=== PATIENT | male | born 1935 | race American Indian/Alaskan Native ===

== ENCOUNTER 2019-06-22 06:50 | Day surgery (SDC) | payer MEDICARE ==
[~2019-06-22 06:50] MED LIST: BACTERIOSTATIC SODIUM CHLORIDE 0.9% 30 ML VIAL INFILTRATI ONE; LACTATED RINGERS 1,000 ML IV SCH; WATER FOR IRRIG STERILE 2000 ML IR ONE; ceFAZolin/STERILE WATER 2 GM/20 ML SYRINGE IV NR
[2019-06-22 07:10] LABS: Basophils % (Auto) 0.7 % (0.0-1.8); Eosinophils # (Auto) 0.2 K/mm3 (0.0-0.4); Eosinophils % (Auto) 3.3 % (0.0-4.3); Hematocrit 37.7 % (35.5-45.6); Hemoglobin 12.6 gm/dl (11.8-15.2); Lymphocytes # (Auto) 1.7 K/mm3 (1.2-5.4); Lymphocytes % (Auto) 32.4 % (13.4-35.0); Mean Corpuscular HGB Conc 33 % (32-34); Mean Corpuscular Volume 88 fl (84-94); Monocytes # (Auto) 0.3 K/mm3 (0.0-0.8); Monocytes % (Auto) 6.4 % (0.0-7.3); Platelet Count 147 K/mm3 (140-440); Red Blood Count 4.27 M/mm3 (3.65-5.03); Red Cell Distribution Width 13.1 % (13.2-15.2)
[2019-06-22] MEDS ORDERED: fentaNYL 100 MCG/2 ML INJ IV PRN (07:19)
--- NOTE | 2019-06-22 07:19 | Anesthesia Consultation ---
Anesthesia Consult and Med Hx Date of service: 06/22/19 - Airway Anesthetic Teeth Evaluation: Dentures ROM Head & Neck: Adequate Mental/Hyoid Distance: Adequate Mallampati Class: Class III Intubation Access Assessment: Possibly Difficult - Pulmonary Exam CTA: Yes - Cardiac Exam Cardiac Exam: RRR - Pre-Operative Health Status ASA Pre-Surgery Classification: ASA3 Proposed Anesthetic Plan: General - Pulmonary Hx Smoking: Yes (quit 50 yrs ago) Hx Respiratory Symptoms: Yes (URI w/ cough 2 wks ago; resolved) Hx Sleep Apnea: No (FERMIN PRE SCREEN HIGH RISK.) - Cardiovascular System Hx Hypertension: No Hx Heart Attack/AMI: No Hx Percutaneous Transluminal Coronary Angioplasty (PTCA): No Hx Cardia Arrhythmia: Yes (bradycardia) Hx Pacemaker: No - Central Nervous System Hx Seizures: No CVA: No - Gastrointestinal Hx Gastroesophageal Reflux Disease: No - Endocrine Hx Renal Disease: No Hx Liver Disease: No Hx Non-Insulin Dependent Diabetes: Yes Hx Hypothyroidism: Yes - Other Systems Hx Obesity: No - Additional Comments Anesthesia Medical History Comments: Hx postop delirium.
--- NOTE | 2019-06-22 07:19 | Anesthesia Day of Surgery ---
Anesthesia Day of Surgery - Day of Surgery Patient Examined: Yes Patient H&P Reviewed: Yes Patient is NPO: Yes
[2019-06-22] MEDS ORDERED: PROPOFOL 200 MG/20 ML VIAL IV ONE ×2 (07:58→08:35)
[2019-06-22] MEDS ORDERED: fentaNYL 100 MCG/2 ML INJ ONE (07:58)
[2019-06-22] MEDS ORDERED: SUCCINYLCHOLINE CHLORIDE 200 MG/10 ML INJ MDV ONE (08:41)
[2019-06-22] MEDS ORDERED: ROCURONIUM 50 MG/5 ML INJ IV ONE (08:46)
[2019-06-22] MEDS ORDERED: WATER FOR IRRIG STERILE 2000 ML IR ONE (08:48)
[2019-06-22] MEDS ORDERED: NEOSTIGMINE 10MG/10 ML INJ MDV ONE (09:10)
[2019-06-22] MEDS ORDERED: GLYCOPYRROLATE 0.4 MG/2 ML INJ ONE (09:10)
[2019-06-22] MEDS ORDERED: ONDANSETRON 4 MG/2 ML INJ ONE (09:12)
--- NOTE | 2019-06-22 09:12 | Short Stay Summary ---
Short Stay Documentation Date of service: 06/22/19 - History H&P: obtained from office - Allergies and Medications Current Medications: Allergies tramadol Adverse Reaction (Verified 06/22/19 07:24) ELEVATED HEARTRATE INCREASED HEART RATE Home Medications Medication Instructions Recorded Confirmed Last Taken Type Acetaminophen/Codeine [Tylenol 1 tab PO Q6H PRN 06/10/19 06/22/19 06/21/19 16:00 History /Codeine # 3 tab] Aspirin [Adult Aspirin] 81 mg PO DAILY 06/10/19 06/22/19 06/15/19 09:00 History AtorvaSTATin [Lipitor] 40 mg PO QHS 06/10/19 06/22/19 06/21/19 09:00 History Cholecalciferol (Vitamin D3) 2,000 unit PO QDAY 06/10/19 06/22/19 06/21/19 09:00 History [Vitamin D3 2,000 UNIT CAP] Ferrous Sulfate [Feosol] 325 mg PO QDAY 06/10/19 06/22/19 06/21/19 09:00 History Ibuprofen [Motrin] 600 mg PO Q8H PRN 06/10/19 06/22/19 06/15/19 09:00 History Levothyroxine [Synthroid] 75 mcg PO QAM 06/10/19 06/22/19 06/21/19 09:00 History Metformin HCl [metFORMIN] 1,000 mg PO BID 06/10/19 06/22/19 06/21/19 17:00 History Silodosin [Rapaflo] 8 mg PO DAILY 06/10/19 06/22/19 06/21/19 09:00 History Sitagliptin Phosphate [Januvia] 100 mg PO DAILY 06/10/19 06/22/19 06/21/19 09:00 History Travoprost [Travatan Z] 1 drop OP DAILY 06/10/19 06/22/19 06/21/19 09:00 History Active Medications Cefazolin Sodium (Ancef/Sterile Water 2 Gm/20 Ml) 2 gm IV PREOP NR Stop: 06/22/19 23:59 Fentanyl (Sublimaze) 50 mcg IV Q5MIN PRN PRN Reason: Pain , Severe (7-10) Stop: 06/22/19 22:00 Lactated Ringer's (Lactated Ringers) 1,000 mls @ 100 mls/hr IV DIRECT ARNOL Last Admin: 06/22/19 07:30 Dose: 100 mls/hr Documented by: - Brief post op/procedure progress note Date of procedure: 06/22/19 Pre-op diagnosis: elevated psa, BPH Post-op diagnosis: same Procedure: cysto, rpg, prostate us bx----62cc Anesthesia: GETA Surgeon: MERCY PARISI Estimated blood loss: minimal Pathology: list (prostate cores) Specimen disposition: to lab Condition: stable - Hospital course Hospital course: pt has norco & cipro - Disposition Condition at discharge: Stable Disposition: DC-01 TO HOME OR SELFCARE Short Stay Discharge Plan Follow up with: SOBIA CHAVEZ MD [Primary Care Provider] - 7 Days
[2019-06-22] MEDS ORDERED: ESMOLOL 100 MG/10 ML INJ IV ONE (09:15)
--- NOTE | 2019-06-22 09:40 | Operative Report ---
PREOPERATIVE DIAGNOSIS: Elevated PSA hypertrophy and BPH. POSTOPERATIVE DIAGNOSES: Elevated PSA hypertrophy and BPH. PROCEDURE: Cystoscopy, bilateral retrograde pyelograms, prostate ultrasound, biopsy of prostate (62 gram gland). SURGEON: Froy Rehman MD. ANESTHESIA: General. ESTIMATED BLOOD LOSS: Minimal. FLUIDS: Crystalloid. COMPLICATIONS: No complications. INDICATIONS: This patient is an 83-year-old gentleman with a history of elevated PSA. He underwent biopsy in 09/2017 that was negative, 50 mL gland. His PSA continues to rise. He underwent an MRI and was found to have a left-sided prostatic lesion. He has a brother with a history of prostate cancer and also his son has a history of prostate cancer. Based on these findings, we agreed to proceed with surgical intervention. DESCRIPTION OF PROCEDURE: The patient was taken to the operative suite, placed in a supine position. After adequate general anesthesia, placed in a dorsal lithotomy position, prepped and draped in a sterile fashion. Pancystourethroscopy was performed with 22-Martiniquais Storz cystoscope, no urethral abnormalities. His prostate displayed moderate trilobar obstruction in his bladder. No tumors or stones were noted. Both ureteral orifices in normal position. Bilateral retrograde pyelograms were obtained with an 8 Martiniquais Tiffani catheter and 8 mL with contrast. No filling defects or obstruction. He did have some J hooking of his distal ureter. Next, using a transrectal ultrasound probe, sagittal and transverse measurements were taken, 62 mL gland. There were some mild hypoechoic areas on the left side, which were biopsied. Template biopsy was taken, focusing on those lesions on the left side. 12 jars were obtained, 2 cores in each jar. The patient tolerated the procedure well. Rectal exam was enlarged prostate. No suspicious lesion. He was extubated and taken to recovery room. The patient has Cipro and Corinna. JOB# [id number] [facility]
--- NOTE | 2019-06-22 09:56 | Ultrasound Report ---
ULTRASOUND TRANSRECTAL HISTORY: Elevated PSA, ultrasound guidance for prostate biopsy. FINDINGS: Transrectal ultrasound guidance was provided for prostate biopsy by the urologist. 6 ultras ound images are presented. Prostate volume measures 62.8 cc. IMPRESSION: Successful ultrasound-guided prostate biopsy by urology. Signer Name: iMke Mcmillan Jr, MD Signed: 06/22/2019 9:51 AM Workstation Name: [id number]
[2019-06-22 12:07] VITALS: BP 148/57
--- NOTE | 2019-06-22 12:13 | Post Anesthesia Evaluation ---
- Post Anesthesia Evaluation Patient Participated: Yes Airway Patent: Yes Stable Respiratory Function: Yes Nausea/Vomiting: No Temp > 96.8F: Yes Pain Manageable: Yes Adequeate Hydration: Yes Anesthesia Complications: No
--- NOTE | 2019-06-22 14:25 | Fluoroscopy Report ---
Fluoroscopy retrograde urography HISTORY: Elevated PSA. FINDINGS: 20 seconds of fluoroscopy time was provided by radiology during retrograde urography by the urologist. 5 fluoroscopic images are presented. Contrast opacifies normal-appearing renal collecting systems bilaterally. No filling defect or abnormal dilatation is identified. Signer Name: Mike Mcmillan Jr, MD Signed: 06/22/2019 2:21 PM Workstation Name: [id number]
== END 2019-06-22 06:51 | disposition home or self-care (01) ==
LOC: OR 06:50
PROVIDERS: ATTEND Urology
DX: N40.0 Benign prostatic hyperplasia without lower urinary tract symptoms (principal); H40.9 Unspecified glaucoma; I42.9 Cardiomyopathy, unspecified; E78.00 Pure hypercholesterolemia, unspecified; E11.39 Type 2 diabetes mellitus with other diabetic ophthalmic complication; M19.90 Unspecified osteoarthritis, unspecified site; E03.9 Hypothyroidism, unspecified; D64.9 Anemia, unspecified; Z79.82 Long term (current) use of aspirin; Z79.899 Other long term (current) drug therapy; Z79.84 Long term (current) use of oral hypoglycemic drugs; Z98.49 Cataract extraction status, unspecified eye; Z98.890 Other specified postprocedural states
CPT/HCPCS: 36415; 52005; 55700; 74420; 76872; 82962; 85025; 88305; 88342; A4217; C1758; J0330; J0690; J2405; J2704; J2710; J3010; J7120; Q9967; 88344

== ENCOUNTER 2019-06-22 18:34 | Observation (INO) | payer MEDICARE ==
--- NOTE | 2019-06-22 18:48 | Event Note ---
ED Screening Note Date of service: 06/22/19 Time: 18:42 ED Screening Note: This is a 83 y.o. M. that presents to the ER with pelvic pressure. Patient states he had a prostate biopsy this morning and unable to urinate. They put a Fortune catheter in and it stopped draining around 1400 and pelvic pain started. He increased water intake and no output. He called Dr. Demarco and told to come to the ER. This initial assessment/diagnostic orders/clinical plan/treatment(s) is/are subject to change based on patients health status, clinical progression and re- assessment by fellow clinical providers in the ED. Further treatment and workup at subsequent clinical providers discretion. Patient/guardian urged not to elope from the ED as their condition may be serious if not clinically assessed and managed. Initial orders include: Labs Bladder scan
[2019-06-22 18:58] LABS: Basophils # (Auto) 0.1 K/mm3 (0.0-0.1); Basophils % (Auto) 0.8 % (0.0-1.8); Eosinophils % (Auto) 0.2 % (0.0-4.3); Hematocrit 38.4 % (35.5-45.6); Hemoglobin 12.9 gm/dl (11.8-15.2); Lymphocytes # (Auto) 1.4 K/mm3 (1.2-5.4); Lymphocytes % (Auto) 11.3 % (13.4-35.0); Mean Corpuscular HGB Conc 34 % (32-34); Mean Corpuscular Volume 88 fl (84-94); Monocytes # (Auto) 0.7 K/mm3 (0.0-0.8); Monocytes % (Auto) 5.4 % (0.0-7.3); Platelet Count 156 K/mm3 (140-440); Red Blood Count 4.35 M/mm3 (3.65-5.03); Red Cell Distribution Width 13.2 % (13.2-15.2)
[2019-06-22 19:22] LABS: Alanine Aminotransferase 10 units/L (7-56); Albumin 3.9 g/dL (3.9-5); BUN/Creatinine Ratio 9; Blood Urea Nitrogen 9 mg/dL (9-20); Calcium 8.3 mg/dL (8.4-10.2); Hemolysis Index 8
[2019-06-22] MEDS ORDERED: SODIUM CHLORIDE 0.9% 1000 ML 0 ML ONE (19:22)
[2019-06-22] MEDS ORDERED: [UNRECOGNIZED DRUG - OTHER] IR ONE (21:10)
[2019-06-22] MEDS ORDERED: SODIUM CHLORIDE 0.9% IRRIG SOLN 3000 ML IR ONE (22:07)
[2019-06-22] MEDS ORDERED: SODIUM CHLORIDE 0.9% IRR 500 ML BOTTLE IR ONE (22:09)
[2019-06-22] MEDS ORDERED: SODIUM CHLORIDE 0.9% IRRIG SOLN 2000 ML IR ONE (22:30)
[2019-06-22] MEDS ORDERED: MORPHINE 2 MG/1 ML INJ ONE (22:37)
[2019-06-22] MEDS ORDERED: ONDANSETRON 4 MG/2 ML INJ ONE (22:37)
[2019-06-23] MEDS ORDERED: ONDANSETRON 4 MG/2 ML INJ IV ONE (00:34)
[2019-06-23] MEDS ORDERED: MORPHINE 2 MG/1 ML INJ IV ONE (00:34)
[2019-06-23] MEDS ORDERED: SODIUM CHLORIDE 0.9% IRRIG SOLN 2000 ML IR SCH (01:00)
--- NOTE | 2019-06-23 01:46 | Emergency Department Report ---
ED Male HPI - General Chief complaint: Urogenital-Male Stated complaint: PAIN AFTER BIO/WEAK/HOT FLASHES Time Seen by Provider: 06/22/19 18:42 Source: patient Mode of arrival: Wheelchair Limitations: No Limitations - History of Present Illness Initial comments: Patient is a 83-year-old -Filipino male who had a trans-rectal prostate biopsy performed today. This is done by Dr. Rehman [facility]. Patient over the last several hours states that he's had fullness in the suprapubic area and his catheter is no longer draining urine. Patient states pain is 8 out of 10 in severity. Patient denies any nausea vomiting. He does feels that he is having hot flashes. Patient is noted konrad blood in the Fortune bag. - Related Data Home Medications Medication Instructions Recorded Confirmed Last Taken Acetaminophen/Codeine [Tylenol 1 tab PO Q6H PRN 06/10/19 06/22/19 06/21/19 16:00 /Codeine # 3 tab] Aspirin [Adult Aspirin] 81 mg PO DAILY 06/10/19 06/22/19 06/15/19 09:00 AtorvaSTATin [Lipitor] 40 mg PO QHS 06/10/19 06/22/19 06/21/19 09:00 Cholecalciferol (Vitamin D3) 2,000 unit PO QDAY 06/10/19 06/22/19 06/21/19 09:00 [Vitamin D3 2,000 UNIT CAP] Ferrous Sulfate [Feosol] 325 mg PO QDAY 06/10/19 06/22/19 06/21/19 09:00 Ibuprofen [Motrin] 600 mg PO Q8H PRN 06/10/19 06/22/19 06/15/19 09:00 Levothyroxine [Synthroid] 75 mcg PO QAM 06/10/19 06/22/19 06/21/19 09:00 Metformin HCl [metFORMIN] 1,000 mg PO BID 06/10/19 06/22/19 06/21/19 17:00 Silodosin [Rapaflo] 8 mg PO DAILY 06/10/19 06/22/19 06/21/19 09:00 Sitagliptin Phosphate [Januvia] 100 mg PO DAILY 06/10/19 06/22/19 06/21/19 09:00 Travoprost [Travatan Z] 1 drop OP DAILY 06/10/19 06/22/19 06/21/19 09:00 Allergies Allergy/AdvReac Type Severity Reaction Status Date / Time tramadol AdvReac ELEVATED Verified 06/22/19 07:24 HEARTRATE ED Review of Systems ROS: Stated complaint: PAIN AFTER BIO/WEAK/HOT FLASHES Other details as noted in HPI Comment: All other systems reviewed and negative ED Past Medical Hx - Past Medical History Previous Medical History?: Yes Hx Hypertension: No Hx Heart Attack/AMI: No Hx Diabetes: Yes Hx Liver Disease: No Hx Renal Disease: No Hx Arthritis: Yes (KNEES AND HIPS) Hx Seizures: No Hx HIV: No - Surgical History Past Surgical History?: Yes Hx Pacemaker: No - Social History Smoking Status: Never Smoker Substance Use Type: None - Medications Home Medications: Home Medications Medication Instructions Recorded Confirmed Last Taken Type Acetaminophen/Codeine [Tylenol 1 tab PO Q6H PRN 06/10/19 06/22/19 06/21/19 16:00 History /Codeine # 3 tab] Aspirin [Adult Aspirin] 81 mg PO DAILY 06/10/19 06/22/19 06/15/19 09:00 History AtorvaSTATin [Lipitor] 40 mg PO QHS 06/10/19 06/22/19 06/21/19 09:00 History Cholecalciferol (Vitamin D3) 2,000 unit PO QDAY 06/10/19 06/22/19 06/21/19 09:00 History [Vitamin D3 2,000 UNIT CAP] Ferrous Sulfate [Feosol] 325 mg PO QDAY 06/10/19 06/22/19 06/21/19 09:00 History Ibuprofen [Motrin] 600 mg PO Q8H PRN 06/10/19 06/22/19 06/15/19 09:00 History Levothyroxine [Synthroid] 75 mcg PO QAM 06/10/19 06/22/19 06/21/19 09:00 History Metformin HCl [metFORMIN] 1,000 mg PO BID 06/10/19 06/22/19 06/21/19 17:00 History Silodosin [Rapaflo] 8 mg PO DAILY 06/10/19 06/22/19 06/21/19 09:00 History Sitagliptin Phosphate [Januvia] 100 mg PO DAILY 06/10/19 06/22/19 06/21/19 09:00 History Travoprost [Travatan Z] 1 drop OP DAILY 06/10/19 06/22/19 06/21/19 09:00 History ED Physical Exam - General Limitations: No Limitations General appearance: alert, in no apparent distress - Head Head exam: Present: atraumatic, normocephalic - Eye Eye exam: Present: normal appearance - ENT ENT exam: Present: mucous membranes moist - Neck Neck exam: Present: normal inspection - Respiratory Respiratory exam: Present: normal lung sounds bilaterally. Absent: respiratory distress, wheezes, rales, rhonchi - Cardiovascular Cardiovascular Exam: Present: regular rate, normal rhythm, normal heart sounds. Absent: systolic murmur, diastolic murmur, rubs, gallop - GI/Abdominal GI/Abdominal exam: Present: soft, distended, tenderness (suprapubic tenderness), normal bowel sounds. Absent: guarding, rebound - Rectal Rectal exam: Present: deferred - Extremities Exam Extremities exam: Present: normal inspection - Back Exam Back exam: Present: normal inspection - Neurological Exam Neurological exam: Present: alert, oriented X3 - Psychiatric Psychiatric exam: Present: normal affect, normal mood - Skin Skin exam: Present: warm, dry, intact, normal color. Absent: rash ED Course Vital Signs 06/22/19 18:42 Temperature 97.7 F Pulse Rate 91 H Respiratory 20 Rate Blood Pressure 113/62 O2 Sat by Pulse 96 Oximetry ED Medical Decision Making - Lab Data Result diagrams: 06/22/19 18:48 06/22/19 18:48 Lab Results 06/22/19 06/22/19 Range/Units 18:48 18:48 WBC 12.3 H (4.5-11.0) K/mm3 RBC 4.35 (3.65-5.03) M/mm3 Hgb 12.9 (11.8-15.2) gm/dl Hct 38.4 (35.5-45.6) % MCV 88 (84-94) fl MCH 30 (28-32) pg MCHC 34 (32-34) % RDW 13.2 (13.2-15.2) % Plt Count 156 (140-440) K/mm3 Lymph % (Auto) 11.3 L (13.4-35.0) % [place] % (Auto) 5.4 (0.0-7.3) % Eos % (Auto) 0.2 (0.0-4.3) % Baso % (Auto) 0.8 (0.0-1.8) % Lymph # 1.4 (1.2-5.4) K/mm3 [place] # 0.7 (0.0-0.8) K/mm3 Eos # 0.0 (0.0-0.4) K/mm3 Baso # 0.1 (0.0-0.1) K/mm3 Seg Neutrophils % 82.3 H (40.0-70.0) % Seg Neutrophils # 10.1 H (1.8-7.7) K/mm3 Sodium 136 L (137-145) mmol/L Potassium 3.4 L (3.6-5.0) mmol/L Chloride 100.5 (98-107) mmol/L Carbon Dioxide 19 L (22-30) mmol/L Anion Gap 20 mmol/L BUN 9 (9-20) mg/dL Creatinine 1.0 (0.8-1.5) mg/dL Estimated GFR > 60 ml/min BUN/Creatinine Ratio 9 % Glucose 205 H (75-100) mg/dL Calcium 8.3 L (8.4-10.2) mg/dL Total Bilirubin 1.70 H (0.1-1.2) mg/dL AST 19 (5-40) units/L ALT 10 (7-56) units/L Alkaline Phosphatase 56 (35-129) units/L Total Protein 6.6 (6.3-8.2) g/dL Albumin 3.9 (3.9-5) g/dL Albumin/Globulin Ratio 1.4 % - Medical Decision Making Patient had his Fortune catheter irrigated and were able to drain a large amount of blood. Using ultrasound dated appreciate a clot of blood of 5 centimeters within the bladder. We monitored the patient and the patient started having some urinary retention again. Dr. Fenton was consulted and stated be appropriate to switch the patient's Fortune catheter with a 3-way catheter so he did have irrigation done. This was performed by nursing staff the patient had 6 L of fluid irrigated through the bladder. The fluid draining at the end of this was a slight pink and translucent. Patient is feeling much improved and can be discharged home at this time. Critical care attestation.: If time is entered above; I have spent that time in minutes in the direct care of this critically ill patient, excluding procedure time. ED Disposition Clinical Impression: Urinary retention Hematuria Qualifiers: Hematuria type: gross Qualified Code(s): R31.0 - Gross hematuria Disposition: TO HOME OR SELFCARE Is pt being admited?: No Does the pt Need Aspirin: No Condition: Stable Instructions: Fortune Catheter Placement and Care (ED), Urinary Leg Bag (GEN) Referrals: MERCY REHMAN MD [Staff Physician] - 3-5 Days Time of Disposition: 01:46
[2019-06-23] MEDS ORDERED: ONDANSETRON 4 MG/2 ML INJ IV PRN (03:35)
[2019-06-23] MEDS ORDERED: oxyCODONE /ACETAMINOPHEN 5-325MG TAB PO PRN (03:35)
[2019-06-23] MEDS ORDERED: ACETAMINOPHEN 325 MG TAB PO PRN (03:35)
[2019-06-23] MEDS ORDERED: MORPHINE 2 MG/1 ML INJ IV PRN (03:35)
--- NOTE | 2019-06-23 03:51 | History and Physical Report ---
History of Present Illness Date of examination: 06/23/19 Chief complaint: Urinary retention History of present illness: Patient is a 83-year-old -[place] male with history of DM2 and BPH who had a trans-rectal prostate biopsy performed by the urologist, Dr. Rehman yesterday. Postprocedure, gomez catheter was placed. Subsequently, he started experiencing fullness in his suprapubic and he noted that he was no longer producing urine in the bag. He admitted to dysuria and lower abdominal pain. He denies fever, chills, chest pain, shortness of breath, palpitation, headaches, nausea, vomiting, lightheadedness, syncope or loss of consciousness. In the ED, after he was irrigated, some blood clots were noted in the urine bag. Past History Past Medical History: arthritis, diabetes, other (BPH) Past Surgical History: Other (left knee surgery, lumpectomy, recent prostate biopsy) Social history: no significant social history (patient denies tobacco, alcohol or illicit drug use) Family history: diabetes (mother), hypertension (Father) Medications and Allergies Allergies Allergy/AdvReac Type Severity Reaction Status Date / Time tramadol AdvReac ELEVATED Verified 06/22/19 07:24 HEARTRATE Home Medications Medication Instructions Recorded Confirmed Last Taken Type Acetaminophen/Codeine [Tylenol 1 tab PO Q6H PRN 06/10/19 06/22/19 06/21/19 16:00 History /Codeine # 3 tab] Aspirin [Adult Aspirin] 81 mg PO DAILY 06/10/19 06/22/19 06/15/19 09:00 History AtorvaSTATin [Lipitor] 40 mg PO QHS 06/10/19 06/22/19 06/21/19 09:00 History Cholecalciferol (Vitamin D3) 2,000 unit PO QDAY 06/10/19 06/22/19 06/21/19 09:00 History [Vitamin D3 2,000 UNIT CAP] Ferrous Sulfate [Feosol] 325 mg PO QDAY 06/10/19 06/22/19 06/21/19 09:00 History Ibuprofen [Motrin] 600 mg PO Q8H PRN 06/10/19 06/22/19 06/15/19 09:00 History Levothyroxine [Synthroid] 75 mcg PO QAM 06/10/19 06/22/19 06/21/19 09:00 History Metformin HCl [metFORMIN] 1,000 mg PO BID 06/10/19 06/22/19 06/21/19 17:00 History Silodosin [Rapaflo] 8 mg PO DAILY 06/10/19 06/22/19 06/21/19 09:00 History Sitagliptin Phosphate [Januvia] 100 mg PO DAILY 06/10/19 06/22/19 06/21/19 09:00 History Travoprost [Travatan Z] 1 drop OP DAILY 06/10/19 06/22/19 06/21/19 09:00 History Active Meds: Active Medications Acetaminophen (Tylenol) 650 mg PO Q4H PRN PRN Reason: Pain MILD(1-3)/Fever >100.5/LUEVANO Morphine Sulfate (Morphine) 2 mg IV Q4H PRN PRN Reason: Pain , Severe (7-10) Ondansetron HCl (Zofran) 4 mg IV Q8H PRN PRN Reason: Nausea And Vomiting Oxycodone/Acetaminophen (Percocet 5/325) 1 tab PO Q6H PRN PRN Reason: Pain, Moderate (4-6) Sodium Chloride (Nacl 0.9%) 2,000 ml IR DIRECT ARNOL Sodium Chloride (Sodium Chloride Flush Syringe 10 Ml) 10 ml IV BID ARNOL Sodium Chloride (Sodium Chloride Flush Syringe 10 Ml) 10 ml IV PRN PRN PRN Reason: LINE FLUSH Review of Systems All systems: negative (all other systems reviewed with the patient and are negative unless otherwise stated above) Exam - Constitutional Vitals: Temp Pulse Resp BP Pulse Ox 97.7 F 91 H 20 113/62 96 06/22/19 18:42 06/22/19 18:42 06/22/19 18:42 06/22/19 18:42 06/22/19 18:42 General appearance: Present: no acute distress, well-nourished - EENT Eyes: Present: PERRL, EOM intact ENT: hearing intact, clear oral mucosa - Neck Neck: Present: supple, normal ROM - Respiratory Respiratory effort: normal Respiratory: bilateral: CTA - Cardiovascular Rhythm: regular Heart Sounds: Present: S1 & S2. Absent: rub, click - Extremities Extremities: pulses symmetrical, No edema Peripheral Pulses: within normal limits - Abdominal General gastrointestinal: Present: soft, tender (lower abdomen), non-distended, normal bowel sounds Male genitourinary: Present: tender (Gomez catheter in place draining bloody urine) - Rectal Rectal Exam: deferred - Integumentary Integumentary: Present: clear, warm, dry - Musculoskeletal Musculoskeletal: gait normal, strength equal bilaterally - Psychiatric Psychiatric: appropriate mood/affect, intact judgment & insight - Neurologic Neurologic: CNII-XII intact, moves all extremities Results - Labs CBC & Chem 7: 06/22/19 18:48 06/22/19 18:48 Labs: Laboratory Last Values WBC 12.3 K/mm3 (4.5-11.0) H 06/22/19 18:48 RBC 4.35 M/mm3 (3.65-5.03) 06/22/19 18:48 Hgb 12.9 gm/dl (11.8-15.2) 06/22/19 18:48 Hct 38.4 % (35.5-45.6) 06/22/19 18:48 MCV 88 fl (84-94) 06/22/19 18:48 MCH 30 pg (28-32) 06/22/19 18:48 MCHC 34 % (32-34) 06/22/19 18:48 RDW 13.2 % (13.2-15.2) 06/22/19 18:48 Plt Count 156 K/mm3 (140-440) 06/22/19 18:48 Lymph % (Auto) 11.3 % (13.4-35.0) L 06/22/19 18:48 [place] % (Auto) 5.4 % (0.0-7.3) 06/22/19 18:48 Eos % (Auto) 0.2 % (0.0-4.3) 06/22/19 18:48 Baso % (Auto) 0.8 % (0.0-1.8) 06/22/19 18:48 Lymph # 1.4 K/mm3 (1.2-5.4) 06/22/19 18:48 [place] # 0.7 K/mm3 (0.0-0.8) 06/22/19 18:48 Eos # 0.0 K/mm3 (0.0-0.4) 06/22/19 18:48 Baso # 0.1 K/mm3 (0.0-0.1) 06/22/19 18:48 Seg Neutrophils % 82.3 % (40.0-70.0) H 06/22/19 18:48 Seg Neutrophils # 10.1 K/mm3 (1.8-7.7) H 06/22/19 18:48 Sodium 136 mmol/L (137-145) L 06/22/19 18:48 Potassium 3.4 mmol/L (3.6-5.0) L 06/22/19 18:48 Chloride 100.5 mmol/L (98-107) 06/22/19 18:48 Carbon Dioxide 19 mmol/L (22-30) L 06/22/19 18:48 Anion Gap 20 mmol/L 06/22/19 18:48 BUN 9 mg/dL (9-20) 06/22/19 18:48 Creatinine 1.0 mg/dL (0.8-1.5) 06/22/19 18:48 Estimated GFR > 60 ml/min 06/22/19 18:48 BUN/Creatinine Ratio 9 % 06/22/19 18:48 Glucose 205 mg/dL (75-100) H 06/22/19 18:48 Calcium 8.3 mg/dL (8.4-10.2) L 06/22/19 18:48 Total Bilirubin 1.70 mg/dL (0.1-1.2) H 06/22/19 18:48 AST 19 units/L (5-40) 06/22/19 18:48 ALT 10 units/L (7-56) 06/22/19 18:48 Alkaline Phosphatase 56 units/L (35-129) 06/22/19 18:48 Total Protein 6.6 g/dL (6.3-8.2) 06/22/19 18:48 Albumin 3.9 g/dL (3.9-5) 06/22/19 18:48 Albumin/Globulin Ratio 1.4 % 06/22/19 18:48 Assessment and Plan Assessment and plan: Hematuria status post surgery -Continue continuous irrigation (Castillo drip) -We'll monitor H&H -Urology consulted DM2 with hyperglycemia -On SSI and Lantus SIRS evidenced by HR>90 and WBC>12K -Exact source of infection unknown -Urinalysis pending Hypokalemia -We'll replete and monitor level -We'll check magnesium level Metabolic acidosis -On IV fluid, will monitor level Mild hyponatremia -On IV fluid, will monitor level Hyperbilirubinemia -Exact cause unknown -We'll monitor level Acute urinary retention -Continue Gomez catheter use DVT prophylaxis with SCD Disposition: Patient admitted to observation status Time spent: 38 minutes
[2019-06-23 03:59] LABS: Hematocrit 32.9 % (35.5-45.6); Hemoglobin 11.3 gm/dl (11.8-15.2)
[2019-06-23] MEDS ORDERED: POTASSIUM CHLORIDE ER 20 MEQ TAB PO ONE (04:08)
[2019-06-23] MEDS ORDERED: DEXTROSE 50% IN WATER (25GM) 50 ML SYRINGE IV PRN (04:10)
[2019-06-23] MEDS ORDERED: SODIUM CHLORIDE 0.9% 1000 ML 1,000 ML IV SCH (05:00)
[2019-06-23 05:26] LABS: Bilirubin,Urine NEG (Negative); Blood,Urine LG (Negative); Color,Urine Red (Yellow); Urobilinogen,Urine < 2.0 mg/dL (<2.0)
[2019-06-23] MEDS: INSULIN LISPRO 100 UNIT/ML SUB-Q SCH ×3 (10:23→17:51)
[2019-06-23 13:23] VITALS: BP 125/62
--- NOTE | 2019-06-23 14:13 | Event Note ---
Date: 06/23/19 Patient seen and examined, clinically stable, reports improvement in symptoms, awaiting urology input.
--- NOTE | 2019-06-23 17:51 | Consultation ---
History of Present Illness - Reason for Consult Consult date: 06/23/19 - History of Present Illness Patient is a 83-year-old -[place] male with history of DM2 and BPH who had a trans-rectal prostate biopsy performed by me yesterday. Postprocedure, gomez catheter (18f) was placed. Subsequently, he started experiencing fullness in his suprapubic and he noted that he was no longer producing urine in the bag. He admitted to dysuria and lower abdominal pain. . In the ED, after he was irrigated, some blood clots were noted in the urine bag. ER doctor changed to 22F 3way irrigated to pink tinged family at bedside. abd soft gomez with pink urine (no clots) A/P hross hematuria---improved home with big bag/leg bag if ok with hospitalist pt has abx & pain pill appt on jul 01 for fill-flow Past History Past Medical History: arthritis, diabetes, other (BPH) Past Surgical History: Other (left knee surgery, lumpectomy, recent prostate biopsy) Social history: no significant social history (patient denies tobacco, alcohol or illicit drug use) Family history: diabetes (mother), hypertension (Father) Medications and Allergies Allergies Allergy/AdvReac Type Severity Reaction Status Date / Time tramadol AdvReac ELEVATED Verified 06/22/19 07:24 HEARTRATE Home Medications Medication Instructions Recorded Confirmed Last Taken Type Acetaminophen/Codeine [Tylenol 1 tab PO Q6H PRN 06/10/19 06/23/19 06/21/19 16:00 History /Codeine # 3 tab] Aspirin [Adult Aspirin] 81 mg PO DAILY 06/10/19 06/23/19 06/15/19 09:00 History AtorvaSTATin [Lipitor] 40 mg PO QHS 06/10/19 06/23/19 06/21/19 09:00 History Cholecalciferol (Vitamin D3) 2,000 unit PO QDAY 06/10/19 06/23/19 06/21/19 09:00 History [Vitamin D3 2,000 UNIT CAP] Ferrous Sulfate [Feosol] 325 mg PO QDAY 06/10/19 06/23/19 06/21/19 09:00 History Ibuprofen [Motrin] 600 mg PO Q8H PRN 06/10/19 06/23/19 06/15/19 09:00 History Levothyroxine [Synthroid] 75 mcg PO QAM 06/10/19 06/23/19 06/21/19 09:00 History Metformin HCl [metFORMIN] 1,000 mg PO BID 06/10/19 06/23/19 06/21/19 17:00 History Silodosin [Rapaflo] 8 mg PO DAILY 06/10/19 06/23/19 06/21/19 09:00 History Sitagliptin Phosphate [Januvia] 100 mg PO DAILY 06/10/19 06/23/19 06/21/19 09:00 History Travoprost [Travatan Z] 1 drop OP DAILY 06/10/19 06/23/19 06/21/19 09:00 History Active Meds: Active Medications Acetaminophen (Tylenol) 650 mg PO Q4H PRN PRN Reason: Pain MILD(1-3)/Fever >100.5/LUEVANO Dextrose (D50w (25gm) Syringe) 50 ml IV PRN PRN PRN Reason: Hypoglycemia Insulin Glargine (Lantus) 10 units SUB-Q QHS COUNTS INCLUDE 234 BEDS AT THE [facility] Insulin Human Lispro (Humalog) 0 unit SUB-Q ACHS COUNTS INCLUDE 234 BEDS AT THE [facility]; Protocol Last Admin: 06/23/19 12:23 Dose: Not Given Documented by: Morphine Sulfate (Morphine) 2 mg IV Q4H PRN PRN Reason: Pain , Severe (7-10) Ondansetron HCl (Zofran) 4 mg IV Q8H PRN PRN Reason: Nausea And Vomiting Oxycodone/Acetaminophen (Percocet 5/325) 1 tab PO Q6H PRN PRN Reason: Pain, Moderate (4-6) Sodium Chloride (Nacl 0.9%) 2,000 ml IR DIRECT ARNOL Sodium Chloride (Sodium Chloride Flush Syringe 10 Ml) 10 ml IV BID COUNTS INCLUDE 234 BEDS AT THE [facility] Last Admin: 06/23/19 10:39 Dose: 10 ml Documented by: Sodium Chloride (Sodium Chloride Flush Syringe 10 Ml) 10 ml IV PRN PRN PRN Reason: LINE FLUSH Exam - Constitutional Vitals: Temp Pulse Resp BP Pulse Ox 98.7 F 84 18 125/62 97 06/23/19 12:48 06/23/19 12:48 06/23/19 12:48 06/23/19 12:48 06/23/19 12:48 Results - Labs CBC & Chem 7: 10/01/19 03:48 06/22/19 18:48 Labs: Abnormal lab results 06/22/19 06/22/19 06/23/19 Range/Units 18:48 18:48 03:48 WBC 12.3 H (4.5-11.0) K/mm3 Hgb 11.3 L (11.8-15.2) gm/dl Hct 32.9 L (35.5-45.6) % Lymph % (Auto) 11.3 L (13.4-35.0) % Seg Neutrophils % 82.3 H (40.0-70.0) % Seg Neutrophils # 10.1 H (1.8-7.7) K/mm3 Sodium 136 L (137-145) mmol/L Potassium 3.4 L (3.6-5.0) mmol/L Carbon Dioxide 19 L (22-30) mmol/L Glucose 205 H (75-100) mg/dL POC Glucose (70-105) Calcium 8.3 L (8.4-10.2) mg/dL Total Bilirubin 1.70 H (0.1-1.2) mg/dL 06/23/19 06/23/19 06/23/19 Range/Units 10:37 11:44 16:50 WBC (4.5-11.0) K/mm3 Hgb (11.8-15.2) gm/dl Hct (35.5-45.6) % Lymph % (Auto) (13.4-35.0) % Seg Neutrophils % (40.0-70.0) % Seg Neutrophils # (1.8-7.7) K/mm3 Sodium (137-145) mmol/L Potassium (3.6-5.0) mmol/L Carbon Dioxide (22-30) mmol/L Glucose (75-100) mg/dL POC Glucose 149 H 120 H 178 H (70-105) Calcium (8.4-10.2) mg/dL Total Bilirubin (0.1-1.2) mg/dL
[2019-06-23] MEDS ORDERED: INSULIN GLARGINE 100 UNITS/ML SUB-Q SCH (22:00)
== END 2019-06-23 18:52 | disposition home or self-care (01) ==
LOC: ED 18:34 → INTOOBSV 06-23 08:16 → 2B-ACE 06-23 08:16
PROVIDERS: ADMIT Internal Medicine; ATTEND Internal Medicine
DX: R31.9 Hematuria, unspecified (principal); R65.10 Systemic inflammatory response syndrome (SIRS) of non-infectious origin without acute organ dysfunction; E87.6 Hypokalemia; R33.8 Other retention of urine; E11.65 Type 2 diabetes mellitus with hyperglycemia; E87.2 Acidosis; E87.1 Hypo-osmolality and hyponatremia; E80.6 Other disorders of bilirubin metabolism; N40.0 Benign prostatic hyperplasia without lower urinary tract symptoms; M19.90 Unspecified osteoarthritis, unspecified site; Z98.890 Other specified postprocedural states; Z79.82 Long term (current) use of aspirin; Z79.84 Long term (current) use of oral hypoglycemic drugs
CPT/HCPCS: 36415; 80053; 81001; 82962; 85014; 85018; 85025; 87086; 96361; 96372; 96374; 96375; 99284; A4217; G0378; J2270; J2405; J7030; J1815

== ENCOUNTER 2019-07-23 06:57 | Outpatient (CLI) | payer MEDICARE ==
[2019-07-23 08:05] LABS: Blood Urea Nitrogen 8 mg/dL (9-20)
--- NOTE | 2019-07-23 10:03 | Cat Scan Report ---
CT scan of the abdomen and pelvis without and with contrast INDICATION: PROSTATE CANCER. TECHNIQUE: All CT scans at this location are performed using the following dose modulation technique: Automated exposure control. Helical slices were obtained through the abdomen and pelvis. Imaging is performed p rior to and following the administration of 100 cc of Omnipaque 300. Oral contrast was administered. COMPARISON: None available. FINDINGS: Abdomen: There are several hypodensities in the liver characteristic of cysts. Spleen, pancreas, adre nal glands, and small bowel are unremarkable. There are bilateral renal cysts. There is no hydronephr osis. There is no adenopathy. Atherosclerotic calcifications are noted in the aorta and iliac arterie s. Pelvis: The appendix is unremarkable. There is no inflammatory change. There are small lymph nodes al branden the right pelvic sidewall measuring just a few millimeters in short axis. No abnormally enlarged nodes are seen. The prostate gland is enlarged measuring 7 cm in AP dimension and 6.5 cm in transvers e dimension. On review of bone windows, there is advanced degenerative change in the right hip. There is mild to m oderate degenerative changes in the spine and left hip. IMPRESSION: 1. No definite static disease is seen. There are very small pelvic nodes identified these are not pat hologically enlarged. There is atherosclerotic disease. There are cysts in the liver and kidneys. Signer Name: Zelalem Olivares MD Signed: 07/23/2019 9:59 AM Workstation Name: [id number]
--- NOTE | 2019-07-23 11:37 | Nuclear Medicine Report ---
NUCLEAR MEDICINE BONE SCAN, WHOLE BODY INDICATION: PROSTATE CANCER. TECHNIQUE: 26 mCi of Tc-99m MDP were injected IV. Whole body images were obtained. COMPARISON: CT scan dated 07/23/2019. FINDINGS: Skeletal Structures: Uptake in the shoulders, sternoclavicular joints, right hip and left knee are al so likely degenerative. Mild uptake in the posterior lower lumbar spine is also characteristic of deg enerative change. Skeletal Lesions: None. Soft Tissues: Normal. Kidneys: Normal, symmetric activity. Additional Findings: None. IMPRESSION: 1. Areas of uptake are characteristic of degenerative change. No osseous metastatic disease is identi fied.. Signer Name: Zelalem Olivares MD Signed: 07/23/2019 11:33 AM Workstation Name: [id number]
== END 2019-07-23 06:58 | disposition home or self-care (01) ==
LOC: NM 06:57
PROVIDERS: ATTEND Radiology Radiation Oncology
DX: C61 Malignant neoplasm of prostate (principal); N28.1 Cyst of kidney, acquired; I70.0 Atherosclerosis of aorta; M16.0 Bilateral primary osteoarthritis of hip; E78.00 Pure hypercholesterolemia, unspecified; G47.30 Sleep apnea, unspecified; E11.9 Type 2 diabetes mellitus without complications; E03.9 Hypothyroidism, unspecified; Z82.49 Family history of ischemic heart disease and other diseases of the circulatory system
CPT/HCPCS: 36415; 74178; 78306; 82565; 84520; A9503; Q9967